=== PATIENT | male | born 1950 | race Caucasian/White ===

== ENCOUNTER 2019-01-12 18:26 | Observation (INO) ==
[2019-01-12] MEDS ORDERED: ONDANSETRON HCL/PF 2 MG/ML VIAL IV ONE (18:49)
[2019-01-12] MEDS ORDERED: MORPHINE SULFATE 2 MG/ML DISP.SYRIN IV ONE ×3 (18:50→22:30)
--- NOTE | 2019-01-12 18:51 | ERNOTE ---
<Anahi Ferrari - Last Filed: 01/12/19 22:12> Abdominal HPI - Narrative Date of Service: 01/12/19 - General Chief Complaint: Abdominal Pain Time Seen by Provider: 01/12/19 18:46 Source: patient Exam Limitations: no limitations - Immun/Allergies/Home Medications Immunizatons: IMMUNIZATION HX Immunizations Up to Date Yes Allergies/Adverse Reactions: Allergies fluticasone [From Flonase] Adverse Reaction (Mild, Verified 01/12/19 18:32) nose bleeds fexofenadine [From Milagros-D 12 Hour] Adverse Reaction (Unknown, Verified 01/12/19 18:32) not effective pseudoephedrine [From Milagros-D 12 Hour] Adverse Reaction (Unknown, Verified 01/12/19 18:32) not effective Home Medications: HOME MEDICATIONS aspirin 81 mg tablet,delayed release 81 mg PO DAILY 12/16/18 [Last Taken 01/10/19] atorvastatin 10 mg tablet 10 mg PO DAILY 12/16/18 [Last Taken 01/10/19] - Pain Score Pain Score #1 Pain Score: 7 Abdominal Pain Onset Location: epigastric Pain Radiation: other - diffuse abdomen - History of Present Illness Narrative: The patient is a 68 year old male who presents for abdominal pain which has been present for 1729. There are associated symptoms of chills, nausea and fatigue. The patient reports pain to epigastrium, 7/10. There are no alleviating factors. There are no aggravating factors. Previous treatments have included: none. The past medical history includes: anxiety, HLD and diverticulosis. The social history is positive for former smoker. The patient has had no ill contacts. Patient states he had colonoscopy this am and then upon arriving home was doing fine. Patient states around 1729 he began to develop severe abdominal pain, nausea and rigors. Review of Systems - Review of Systems Constitutional: Present: chills, fatigue EYE: Present: no symptoms reported ENT: Present: no symptoms reported. Absent: ear pain, nasal drainage, sore throat Respiratory: Present: no symptoms reported. Absent: shortness of breath, cough Cardiology: Present: no symptoms reported. Absent: chest pain Gastrointestinal/Abdominal: Present: nausea, abdominal pain. Absent: vomiting, diarrhea Genitourinary: Present: no symptoms reported. Absent: dysuria, decreased urinary output Musculoskeletal: Present: no symptoms reported. Absent: back pain Skin: Present: no symptoms reported. Absent: rash Neurological: Present: no symptoms reported All Other Systems: All systems neg except as marked Medical History (Updated 01/12/19 @ 07:43 by Janneth Blevins RN) Wears glasses Anxiety Onset Date: Unknown Diverticulosis Onset Date: 03/25/08 Hyperlipidemia Onset Date: Unknown Blood in stool Onset Date: 03/24/01 Deviated nasal septum Onset Date: Unknown Tinnitus Onset Date: 12/27/05 Surgical History: Surgical History (Updated 12/10/18 @ 16:38 by Trang Ayala RN) History of arthroscopic knee surgery Onset Date: ~1989 [facility]-right, meniscus repair History of colonoscopy Onset Date: 12/24/11 [place]-03/24/01-scattered sigmoid diverticulosis. 12/24/11-extensive diverticulosis sigmoid colon. History of inguinal hernia repair Onset Date: ~1997 [facility]-left History of nasal septoplasty Onset Date: ~1999 Dr. Balbir Holland teeth extracted Onset Date: ~2010 Family History: Family History (Updated 01/12/19 @ 07:42 by Janneth Blevins RN) Father , age 87-CHF Hypertension Cancer prostate ca-dx age78 Pacemaker Hyperlipemia CHF (congestive heart failure) Mother Hypertension Osteoarthritis CHF (congestive heart failure) Sister Cancer breast ca-dx age 55 Neuropathy due to chemo Sister Colon polyps Grandmother Cancer maternal-colon ca-dx age unknown Daughter Alive and well Social History: (Last Reviewed 01/12/19 @ 18:54 by HARLEY Cortez) Social History: Marital status: household members: spouse number of children: 2 current occupational status: retired Service: Yes branch: [employer] Tobacco: Smoking Status: Former smoker Alcohol: alcohol intake: current Alcohol type: beer alcohol intake frequency: a few times a week Substance Use: substance use type: does not use Dietary Habits: caffeine: Yes Personal Safety: victim of physical abuse: No victim of emotional abuse: No Physical Exam - Physical Exam General Appearance: Present: wd/wn, alert, moderate distress Head Exam: Present: active bleeding Eye Exam: Normal inspection: bilateral Ears, Nose, Throat: Present: normal ENT inspection, normal pharynx Neck: Present: normal inspection Respiratory: Present: no respiratory distress, normal breath sounds, no accessory muscle use, lungs clear Cardiovascular/Chest: Present: no murmur, tachycardia Gastrointestinal/Abdominal: Present: normal bowel sounds, nondistended, soft, no organomegaly, tenderness - epigastric-moderate, diffuse abdomen. Absent: guarding, mass Neurological Exam: Present: alert, oriented, normal mood/affect, no motor/sensory deficits Skin Exam: Present: warm/dry, pallor Progress - Date and Time Seen: Date and Time: 01/12/19 19:48 Discussed case with , concern for perforation due to free air on abd xray along with other clinical symptoms. states will present. Notified since she performed procedure, instructed to allow on-call to handle case. 01/12/19 20:13 in with patient to discuss plan of care. Due to post op care needs and staffing matrix patient to be transferred after discussion with nursing butcher supervisor and . Discussed case with , [facility], accepted for transfer. 01/12/19 20:30 Notified by [facility] that they will not be accepting this patient after Lacey DEMARCO was contacted by [facility] surgeon and instructed by Lacey that [facility] is able to take care of patient. Discussed with and will proceed with CT abd/pelvis due to other clinical findings of tachycardia, fever and abdominal pain since abd xray normal. 01/12/19 20:56 Discussed radiology interpretation with patient and family and will proceed with CT imaging for further evaluation. - Results and Orders Patient's Lab Results:: I have reviewed the patient's lab results. - Vital Signs Patient's Vital Signs:: I have reviewed the patient's vital signs. Vital Signs: Vital Signs 01/12/19 18:30 Temperature 37.6 C Pulse Rate 119 H Respiratory Rate 18 Blood Pressure 147/101 H O2 Sat by Pulse Oximetry 98 - X-Ray X-Ray #1 X-Ray: abdomen Interpretation: Reviewed by me X-ray Comments: Preliminary interpretation. Free air. Reviewed with . IMPRESSION: NO ACUTE ABDOMINAL PATHOLOGY IDENTIFIED. Electronically signed by Alton Montgomery M.D.. - Progress/Reassessment Chief Complaint: Abdominal Pain - Transfer of Care Physician Sign Out: Anahi Ferrari Receiving Physician: Ceasar Johnson Pending Results: CT/MRI results Expected Disposition: Admit Departure Clinical Impression: Perforation bowel - Departure Disposition: Still a patient Condition: Stable <Ceasar Johnson - Last Filed: 01/13/19 01:44> Abdominal HPI - Immun/Allergies/Home Medications Immunizatons: IMMUNIZATION HX Immunizations Up to Date Yes Medical History (Updated 01/12/19 @ 07:43 by Janneth Bleivns RN) Wears glasses Anxiety Onset Date: Unknown Diverticulosis Onset Date: 03/25/08 Hyperlipidemia Onset Date: Unknown Blood in stool Onset Date: 03/24/01 Deviated nasal septum Onset Date: Unknown Tinnitus Onset Date: 12/27/05 Surgical History: Surgical History (Updated 12/10/18 @ 16:38 by Trang Ayala RN) History of arthroscopic knee surgery Onset Date: ~1989 [facility]-right, meniscus repair History of colonoscopy Onset Date: 12/24/11 [place]-03/24/01-scattered sigmoid diverticulosis. 12/24/11-extensive diverticulosis sigmoid colon. History of inguinal hernia repair Onset Date: ~1997 [facility]-left History of nasal septoplasty Onset Date: ~1999 Dr. Balbir Holland teeth extracted Onset Date: ~2010 Family History: Family History (Updated 01/12/19 @ 07:42 by Janneth Blevins RN) Father , age 87-CHF Hypertension Cancer prostate ca-dx age78 Pacemaker Hyperlipemia CHF (congestive heart failure) Mother Hypertension Osteoarthritis CHF (congestive heart failure) Sister Cancer breast ca-dx age 55 Neuropathy due to chemo Sister Colon polyps Grandmother Cancer maternal-colon ca-dx age unknown Daughter Alive and well Social History: (Last Reviewed 01/12/19 @ 18:54 by HARLEY Cortez) Social History: Marital status: household members: spouse number of children: 2 current occupational status: retired Service: Yes branch: [employer] Tobacco: Smoking Status: Former smoker Alcohol: alcohol intake: current Alcohol type: beer alcohol intake frequency: a few times a week Substance Use: substance use type: does not use Dietary Habits: caffeine: Yes Personal Safety: victim of physical abuse: No victim of emotional abuse: No Progress - Vital Signs Vital Signs: Vital Signs 01/12/19 18:30 01/12/19 19:56 01/12/19 21:09 Temperature 37.6 C 38.6 C H Pulse Rate 119 H 121 H 113 H Respiratory Rate 18 16 16 Blood Pressure 147/101 H 136/78 126/76 O2 Sat by Pulse Oximetry 98 98 94 01/12/19 21:21 01/12/19 23:17 Temperature 38.4 C H 37.7 C Pulse Rate 113 H 117 H Respiratory Rate 16 16 Blood Pressure 129/78 98/62 O2 Sat by Pulse Oximetry 94 95 - CT/Ultrasound CT/Ultrasound Narrative: CT abdomen pelvis with oral and IV contrast. 1. Focal colonic wall thickening at the hepatic flexure with surrounding pericolonic inflammation reflective of a nonspecific colitis that may be infectious, inflammatory or traumatic in nature. No free air to suggest bowel perforation. Correlate with site of biopsy from status colonoscopy. 2. Bilateral dependent lower lobe airspace disease may represent atelectasis or pneumonia. 3. Diverticulosis without diverticulitis - Progress/Reassessment Progress Note-Subjective: 01/13/19 00:[address] Dodd about CT results he will come in and talk to the patient about admission. 01/13/19 01:42 Dr. Dodd did come in speak with the patient and completed H&P and admission orders.
[2019-01-12 19:04] LABS: Hemoglobin 14.8 gm/dL (13.5-18.0); Mean Cell Volume 89.1 fl (78-100); Mean Corpuscular Hgb Conc 33.6 g/dl (32-36); Mean Platelet Volume 9.3 fl (8-11.3); Neutrophil # 14.5 K/mm3 (1.3-6.0); Neutrophil % 87.9 % (42-75.0); Platelet Count 224 K/mm3 (150-450); Red Blood Count 4.94 M/mm3 (4.7-6.0); Red Cell Distribution Width 13.4 % (11.5-14.0); White Blood Count 16.5 K/mm3 (4.0-10.5)
[2019-01-12] MEDS: NORMAL SALINE 1,000 ML IV PRN ×2 (19:12→20:43)
[2019-01-12 19:17] LABS: Albumin * 3.7 gm/dl (3.4-5.0); Anion Gap 14.2 mmol/L (6.8-13.8); BUN/Creatinine Ratio 20.4 (9.0-21.6); Bilirubin, Total 0.8 mg/dL (0.0-1.1); Carbon Dioxide 24.6 mmol/L (24-32.6); Potassium 3.8 mmol/L (3.4-4.6); Total Protein 7.6 gm/dL (6.2-8.2)
[2019-01-12 19:22] LABS: Ca. Corrected For Albumin 8.3 mg/dL (8.4-10.2); Calcium * 8.4 mg/dL (7.9-10.9)
[2019-01-12 19:41] LABS: Urine Bilirubin Negative (NEGATIVE); Urine Blood Negative /ul (NEGATIVE); Urine Ketone Negative (NEGATIVE); Urine Nitrite Negative (NEGATIVE); Urine Protein Negative (NEGATIVE); Urine Specific Gravity >=1.030 SP.GR. (1.005-1.030); Urine Urobilinogen Normal (NORMAL); Urine pH 5.5 pH (5.0-7.0)
[2019-01-12 19:47] LABS: Urine Appearance Clear (CLEAR); Urine Bacteria None Seen; Urine Color Yellow; Urine RBC None Seen /hpf (0-5); Urine WBC None Seen /hpf (0-5)
[2019-01-12] MEDS ORDERED: PIPERACILLIN SODIUM/TAZOBACTAM 3.375 GM in DEXTROSE 5 % IN WATER 100 ML IV ONE ×2 (20:03)
[2019-01-12] MEDS ORDERED: NORMAL SALINE 1,000 ML IV ONE ×2 (20:03→22:40)
[2019-01-12] MEDS ORDERED: DIATRIZOATE MEGLUMINE, SODIUM 30 ML BTL PO ONE (20:50)
--- NOTE | 2019-01-13 01:12 | HP ---
Chief Complaint - Chief Complaint Date of Service: 01/13/19 Time of Service: 00:49 Chief Complaint: abdominal pain and chills after colonoscopy History of Present Illness: He had a colonoscopy AM of 01/12/19. He had a cautery snare polypectomy at the hepatic flexure. there was diverticulosis. He had no pain after the procedure, and ate some eggs. Then he developed right sided abdomnal pain and chills. He took a shower but the chills persisted. He tried some chicken soup and the pain got worse. He came to the ER and was found to have abdominal distention/tympany and marked tenderness. His WBC was elevated and he had an elevated temp. Initial impression of abdominal xrays suggested free air and I was asked to see the patient. Official reading was no free air. He was given IV zosyn and a CT scan obtained. There is colonic wall thickening in the hepatic flexure with adjacent pericolonic inflammation, but no free air. Lactic acid was 2.6 and 2.4 on repeat Medical History (Updated 01/12/19 @ 20:09 by HARLEY Cortez) Wears glasses Anxiety Onset Date: Unknown Diverticulosis Onset Date: 03/25/08 Hyperlipidemia Onset Date: Unknown Blood in stool Onset Date: 03/24/01 Deviated nasal septum Onset Date: Unknown Tinnitus Onset Date: 12/27/05 Surgical History: Surgical History (Updated 12/10/18 @ 16:38 by Trang Ayala RN) History of arthroscopic knee surgery Onset Date: ~1989 [facility]-right, meniscus repair History of colonoscopy Onset Date: 12/24/11 [place]-03/24/01-scattered sigmoid diverticulosis. 12/24/11-extensive diverticulosis sigmoid colon. History of inguinal hernia repair Onset Date: ~1997 [place]-left History of nasal septoplasty Onset Date: ~1999 Dr. Balbir Holland teeth extracted Onset Date: ~2010 Family History: Family History (Updated 01/12/19 @ 07:42 by Janneth Blevins RN) Father , age 87-CHF CHF (congestive heart failure) Hyperlipemia Pacemaker Cancer prostate ca-dx age78 Hypertension Mother CHF (congestive heart failure) Osteoarthritis Hypertension Sister Neuropathy due to chemo Cancer breast ca-dx age 55 Sister Colon polyps Grandmother Cancer maternal-colon ca-dx age unknown Daughter Alive and well Social History: (Last Reviewed 01/13/19 @ 00:55 by Yusuf Dodd MD) Social History: Marital status: household members: spouse number of children: 2 current occupational status: retired Service: Yes branch: [employer] Tobacco: Smoking Status: Former smoker Alcohol: alcohol intake: current Alcohol type: beer alcohol intake frequency: a few times a week Substance Use: substance use type: does not use Dietary Habits: caffeine: Yes Personal Safety: victim of physical abuse: No victim of emotional abuse: No Review Of Systems (GEN) - Review of Systems Generalized/Overall Review: Present: Chills, Fever EENTM: Present: No Symptoms Reported, Other - hearing aid Respiratory: Present: No Symptoms Reported, Other - used to snore until septoplasty, lesions on scalp and is going to see Dermatology next week Cardiac: Present: Palpitations - used to have, but w/u negative and not a problem now. Absent: Chest Pain Abdominal: Present: Abdominal Pain, Other - usually moves bowels 3 times a day, used to be more regular when he ate apples and oranges on breaks, has used some Metamucil. Absent: Nausea, Vomiting Genitourinary: Present: No Symptoms Reported, Nocturia - up once but not every night Musculoskeletal: Present: Joint Pain - sees achiropractor for neck and uses heat for achy joints, Neck Pain Neurological: Present: No Symptoms Reported Skin: Present: Other - scalp lesions and he cuts more Endocrine: Present: No Symptoms Reported Immunizations: IMMUNIZATION HX Immunizations Up to Date Yes Allergies/Adverse Reactions: Allergies Allergy/AdvReac Type Severity Reaction Status Date / Time fluticasone [From Flonase] AdvReac Mild nose bleeds Verified 01/12/19 18:32 fexofenadine AdvReac Unknown not Verified 01/12/19 18:32 [From Milagros-D 12 Hour] effective pseudoephedrine AdvReac Unknown not Verified 01/12/19 18:32 [From Milagros-D 12 Hour] effective Home Medications: HOME MEDICATIONS aspirin 81 mg tablet,delayed release 81 mg PO DAILY 12/16/18 [Last Taken 01/10/19] atorvastatin 10 mg tablet 10 mg PO DAILY 12/16/18 [Last Taken 01/10/19] Exam - Exam Vital Signs: Vital Signs - Last Taken Temp 37.7 C 01/12/19 23:17 Pulse 117 H 01/12/19 23:17 Resp 16 01/12/19 23:17 BP 98/62 01/12/19 23:17 Pulse Ox 95 01/12/19 23:17 Constitutional: Present: Alert, Oriented x3, Cooperative, Well nourished, Mild distress ENT Exam: Present: normal ENT inspection, hard of hearing - mild, other - fetor tracy Eye Exam: bilateral eye: normal inspection Neck: Present: full range of motion, supple, normal inspection Back Exam: Present: normal inspection Breasts: Present: Exam deferred Respiratory: Present: lungs clear, normal breath sounds, no respiratory distress Cardiovascular/Chest: Present: normal peripheral pulses, regular rate, rhythm, no JVD, no murmur Abdomen: Present: Normal bowel sounds, other - distended but soft. Very tympanitic but no harinder percussion tenderness. 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2 H (6.8-13.8) mmol/L Random Glucose 144 H (70-110) mg/dL Lactic Acid, Venous 2.6 H* (0.4-2.0) mmol/L Calcium Adj for Albumin 8.3 L (8.4-10.2) mg/dL Lipase 71 L (73-393) U/L 01/12/19 Range/Units 23:00 WBC (4.0-10.5) K/mm3 Immature Gran # (Auto) (0.000-0.0310) K/mm3 Neutrophils % (42-75.0) % Lymphocytes % (20-51) % Neutrophils # (1.3-6.0) K/mm3 Lymphocytes # (1.5-3.5) k/mm3 Anion Gap (6.8-13.8) mmol/L Random Glucose (70-110) mg/dL Lactic Acid, Venous 2.4 H* (0.4-2.0) mmol/L Calcium Adj for Albumin (8.4-10.2) mg/dL Lipase (73-393) U/L Laboratory Results WBC 16.5 K/mm3 (4.0-10.5) H 01/12/19 18:59 RBC 4.94 M/mm3 (4.7-6.0) 01/12/19 18:59 Hgb 14.8 gm/dL (13.5-18.0) 01/12/19 18:59 Hct 44.0 % (42.0-52.0) 01/12/19 18:59 MCV 89.1 fl (78-100) 01/12/19 18:59 MCH 30.0 pg (27-31) 01/12/19 18:59 MCHC 33.6 g/dl (32-36) 01/12/19 18:59 RDW 13.4 % (11.5-14.0) 01/12/19 18:59 Plt Count 224 K/mm3 (150-450) 01/12/19 18:59 MPV 9.3 fl (8-11.3) 01/12/19 18:59 Immature Gran % (Auto) 0.40 % (0.001-0.429) 01/12/19 18:59 Immature Gran # (Auto) 0.07 K/mm3 (0.000-0.0310) H 01/12/19 18:59 87.9 % (42-75.0) H 01/12/19 18:59 7.3 % (20-51) L 01/12/19 18:59 4.0 % (0.0-9) 01/12/19 18:59 0.2 % (0.0-3.0) 01/12/19 18:59 0.2 % (0.0-1.0) 01/12/19 18:59 Nucleated RBC % 0.0 k/mm3 (0-1) 01/12/19 18:59 14.5 K/mm3 (1.3-6.0) H 01/12/19 18:59 1.20 k/mm3 (1.5-3.5) L 01/12/19 18:59 0.7 k/mm3 (0.0-1.0) 01/12/19 18:59 0.0 k/mm3 (0.0-0.7) 01/12/19 18:59 Absolute Basophils 0.0 k/mm3 (0.0-0.1) 01/12/19 18:59 Sodium 137 mmol/L (132-142) 01/12/19 18:59 138 mmol/L (130-142) 01/12/19 18:59 Potassium 3.8 mmol/L (3.4-4.6) 01/12/19 18:59 Chloride 102 mmol/L (97-106) 01/12/19 18:59 Carbon Dioxide 24.6 mmol/L (24-32.6) 01/12/19 18:59 14.2 mmol/L (6.8-13.8) H 01/12/19 18:59 BUN 20 mg/dL (6-23) 01/12/19 18:59 0.98 mg/dL (0.4-1.4) 01/12/19 18:59 Est GFR (Non-Af Amer) 80 mL/min (60-130) 01/12/19 18:59 20.4 (9.0-21.6) 01/12/19 18:59 144 mg/dL (70-110) H 01/12/19 18:59 2.4 mmol/L (0.4-2.0) H* 01/12/19 23:00 Calcium 8.4 mg/dL (7.9-10.9) 01/12/19 18:59 Calcium Adj for Albumin 8.3 mg/dL (8.4-10.2) L 01/12/19 18:59 0.8 mg/dL (0.0-1.1) 01/12/19 18:59 AST 20 U/L (0-48) 01/12/19 18:59 ALT 21 U/L (19-67) 01/12/19 18:59 85 U/L (50-170) 01/12/19 18:59 7.6 gm/dL (6.2-8.2) 01/12/19 18:59 3.7 gm/dl (3.4-5.0) 01/12/19 18:59 Amylase 46 U/L (25-115) 01/12/19 18:59 71 U/L (73-393) L 01/12/19 18:59 Yellow 01/12/19 19:34 Clear (CLEAR) 01/12/19 19:34 5.5 pH (5.0-7.0) 01/12/19 19:34 Ur Specific [place] >=1.030 SP.GR. (1.005-1.030) 01/12/19 19:34 Negative mg/dL (NEGATIVE) 01/12/19 19:34 Negative mg/dL (NEGATIVE) 01/12/19 19:34 Negative mg/dL (NEGATIVE) 01/12/19 19:34 Negative /ul (NEGATIVE) 01/12/19 19:34 Negative (NEGATIVE) 01/12/19 19:34 Negative mg/dl (NEGATIVE) 01/12/19 19:34 Normal EU/dl (NORMAL) 01/12/19 19:34 Ur Leukocyte Esterase Negative /ul (NEGATIVE) 01/12/19 19:34 None seen /hpf (0-5) 01/12/19 19:34 None seen /hpf (0-5) 01/12/19 19:34 Ur Epithelial Cells None seen /hpf (0-5) 01/12/19 19:34 None seen (NONE) 01/12/19 19:34 No culture indicated 01/12/19 19:34 CT report reviewed Assessment/Plan - Assessment/Plan (1) Perforation bowel Assessment: He does not have free air but does have findings adjacent to the polypectomy site. Will keep NPO with IV hydration and IV antibiotics. SCD's for VTE prophylaxis--no Lovenox, takes ASA. Continue home cholesterol meds. Will re- examine serially and recheck WBC in AM. Problem: Suspected
[2019-01-13] MEDS ORDERED: MORPHINE SULFATE 4 MG/ML SYRG IV PRN (01:19)
[2019-01-13] MEDS ORDERED: ACETAMINOPHEN 1,000 MG/100 ML BTL IV ONE (01:41)
[2019-01-13] MEDS: NORMAL SALINE 1,000 ML IV PRN ×4 (02:54→20:34)
[2019-01-13] MEDS: PIPERACILLIN SODIUM/TAZOBACTAM 3.375 GM in DEXTROSE 5 % IN WATER 100 ML IV SCH ×6 (03:18→18:42)
[2019-01-13] MEDS ORDERED: MORPHINE SULFATE 2 MG/ML DISP.SYRIN IV PRN (06:35)
[2019-01-13 07:03] LABS: Hematocrit 34.9 % (42.0-52.0); Hemoglobin 11.9 gm/dL (13.5-18.0); Mean Cell Volume 88.8 fl (78-100); Mean Corpuscular Hemoglobin 30.3 pg (27-31); Mean Corpuscular Hgb Conc 34.1 g/dl (32-36); Mean Platelet Volume 8.8 fl (8-11.3); Platelet Count 175 K/mm3 (150-450); Red Blood Count 3.93 M/mm3 (4.7-6.0); Red Cell Distribution Width 13.6 % (11.5-14.0); White Blood Count 23.5 K/mm3 (4.0-10.5)
[2019-01-13 07:08] LABS: Total Cells Counted 100
[2019-01-13 07:16] LABS: Band 1 % (0-2.0); Basophil 1 % (0-1); Lymphocyte 10 % (20-51); Monocyte 4 % (0-9); Neutrophil 84 % (42-75); Neutrophil # 19.7 K/mm3 (1.3-6.0); Platelet Estimate Normal (NORMAL); RBC Morphology Normal (NORMAL)
--- NOTE | 2019-01-13 09:24 | PN ---
Subjective - Date and Time Seen Date: 01/13/19 Time: 09:20 Subjective Narrative: He is feeling much better today. He is much more comfortable and has less pain. Objective - Review of Systems Generalized/Overall Review: Reports: No Symptoms Reported EENTM: Reports: No Symptoms Reported Respiratory: Reports: No Symptoms Reported Cardiac: Reports: No Symptoms Reported Abdominal: Reports: Abdominal Pain Genitourinary Symptoms: Reports: No Symptoms Reported Musculoskeletal Complaints: Reports: No Symptoms Reported Neurological: Reports: No Symptoms Reported Skin: Reports: No Symptoms Reported Endocrine: Reports: No Symptoms Reported - Vitals Vitals: Last Vital Signs Temp 37.0 C 01/13/19 06:50 Pulse 74 01/13/19 06:50 Resp 16 01/13/19 06:50 BP 90/58 01/13/19 06:50 Pulse Ox 95 01/13/19 06:50 - Abnormal Lab Findings Abnormal Lab Findings: Abnormal Lab Results 01/12/19 01/12/19 01/12/19 Range/Units 18:59 18:59 18:59 WBC 16.5 H (4.0-10.5) K/mm3 RBC (4.7-6.0) M/mm3 Hgb (13.5-18.0) gm/dL Hct (42.0-52.0) % Immature Gran # (Auto) 0.07 H (0.000-0.0310) K/mm3 Neutrophils % 87.9 H (42-75.0) % Neutrophils % (Manual) (42-75) % Lymphocytes % 7.3 L (20-51) % Lymphocytes % (Manual) (20-51) % Neutrophils # 14.5 H (1.3-6.0) K/mm3 Neutrophils # (Manual) (1.3-6.0) K/mm3 Lymphocytes # 1.20 L (1.5-3.5) k/mm3 Basophils # (Manual) (0.0-0.1) k/mm3 Anion Gap 14.2 H (6.8-13.8) mmol/L Random Glucose 144 H (70-110) mg/dL Lactic Acid, Venous 2.6 H* (0.4-2.0) mmol/L Calcium Adj for Albumin 8.3 L (8.4-10.2) mg/dL C-Reactive Prot, Quant (0.0-0.9) mg/dL Lipase 71 L (73-393) U/L 01/12/19 01/13/19 01/13/19 Range/Units 23:00 07:01 07:01 WBC 23.5 H D (4.0-10.5) K/mm3 RBC 3.93 L (4.7-6.0) M/mm3 Hgb 11.9 L (13.5-18.0) gm/dL Hct 34.9 L (42.0-52.0) % Immature Gran # (Auto) (0.000-0.0310) K/mm3 Neutrophils % (42-75.0) % Neutrophils % (Manual) 84 H (42-75) % Lymphocytes % (20-51) % Lymphocytes % (Manual) 10 L (20-51) % Neutrophils # (1.3-6.0) K/mm3 Neutrophils # (Manual) 19.7 H (1.3-6.0) K/mm3 Lymphocytes # (1.5-3.5) k/mm3 Basophils # (Manual) 0.2 H (0.0-0.1) k/mm3 Anion Gap (6.8-13.8) mmol/L Random Glucose (70-110) mg/dL Lactic Acid, Venous 2.4 H* (0.4-2.0) mmol/L Calcium Adj for Albumin (8.4-10.2) mg/dL C-Reactive Prot, Quant 7.9 H (0.0-0.9) mg/dL Lipase (73-393) U/L - Exam Constitutional: Present: Alert, Oriented x3, Cooperative ENT Exam: Present: hearing grossly normal Neck: Present: supple Respiratory: Present: lungs clear, no respiratory distress Cardiovascular/Chest: Present: regular rate, rhythm Abdomen: Present: Normal bowel sounds, soft, nontender, nondistended, no rebound tenderness /Rectal: Present: Exam deferred Extremity: Present: normal range of motion Skin Exam: Present: normal color Lymphatic: Present: no adenopathy 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
[2019-01-13] MEDS: ACETAMINOPHEN 500 MG TABLET PO PRN ×2 (10:38→18:40)
[2019-01-13] MEDS ORDERED: NORMAL SALINE 1,000 ML IV ONE (10:55)
[2019-01-13] MEDS ORDERED: SIMVASTATIN 20 MG TABLET PO SCH (21:00)
[2019-01-14] MEDS: NORMAL SALINE 1,000 ML IV PRN (03:17)
[2019-01-14] MEDS: PIPERACILLIN SODIUM/TAZOBACTAM 3.375 GM in DEXTROSE 5 % IN WATER 100 ML IV SCH ×4 (03:17→10:49)
[2019-01-14] MEDS: ACETAMINOPHEN 500 MG TABLET PO PRN (03:24)
[2019-01-14 05:45] LABS: Hematocrit 35.4 % (42.0-52.0); Hemoglobin 11.9 gm/dL (13.5-18.0); Mean Cell Volume 90.3 fl (78-100); Mean Corpuscular Hemoglobin 30.4 pg (27-31); Mean Corpuscular Hgb Conc 33.6 g/dl (32-36); Mean Platelet Volume 9.2 fl (8-11.3); Neutrophil # 13.1 K/mm3 (1.3-6.0); Neutrophil % 80.9 % (42-75.0); Platelet Count 180 K/mm3 (150-450); Red Blood Count 3.92 M/mm3 (4.7-6.0); Red Cell Distribution Width 14.1 % (11.5-14.0); White Blood Count 16.2 K/mm3 (4.0-10.5)
--- NOTE | 2019-01-14 08:28 | PN ---
Subjective - Date and Time Seen Date: 01/14/19 Time: 08:28 Subjective Narrative: He is doing well. His pain is decreased. He is having frequent diarrhea. He denies blood. Denies N/V. Feels hungry Objective - Review of Systems Generalized/Overall Review: Reports: No Symptoms Reported EENTM: Reports: No Symptoms Reported Respiratory: Reports: No Symptoms Reported Cardiac: Reports: No Symptoms Reported Abdominal: Reports: Abdominal Pain - mild, Diarrhea Genitourinary Symptoms: Reports: No Symptoms Reported Musculoskeletal Complaints: Reports: No Symptoms Reported Neurological: Reports: No Symptoms Reported Skin: Reports: No Symptoms Reported Endocrine: Reports: No Symptoms Reported - Vitals Vitals: Last Vital Signs Temp 36.9 C 01/14/19 06:21 Pulse 68 01/14/19 06:21 Resp 16 01/14/19 06:21 BP 133/77 01/14/19 06:21 Pulse Ox 95 01/14/19 06:21 - Abnormal Lab Findings Abnormal Lab Findings: Abnormal Lab Results 01/14/19 Range/Units 05:30 WBC 16.2 H D (4.0-10.5) K/mm3 RBC 3.92 L (4.7-6.0) M/mm3 Hgb 11.9 L (13.5-18.0) gm/dL Hct 35.4 L (42.0-52.0) % RDW 14.1 H (11.5-14.0) % Immature Gran % (Auto) 0.70 H (0.001-0.429) % Immature Gran # (Auto) 0.12 H (0.000-0.0310) K/mm3 Neutrophils % 80.9 H (42-75.0) % Lymphocytes % 10.8 L (20-51) % Neutrophils # 13.1 H (1.3-6.0) K/mm3 - Exam Constitutional: Present: Alert, Oriented x3 ENT Exam: Present: hearing grossly normal Neck: Present: supple Breasts: Present: Exam deferred Respiratory: Present: lungs clear, normal breath sounds Cardiovascular/Chest: Present: regular rate, rhythm Abdomen: Present: Normal bowel sounds, soft, nontender, no rebound tenderness /Rectal: Present: Exam deferred Extremity: Present: normal range of motion Skin Exam: Present: normal color Neurologic: Present: paper inserter II-XII nml as tested Appearance: Present: appropriate appearance Eye contact: Present: cooperative Thoughts: Present: normal thought pattern Assessment/Plan - Problems/Diagnosis (1) Abdominal pain Problem: Acute (2) History of colonoscopy with polypectomy Problem: Acute Plan - Plan Plan: clears this am fulls at lunch WBC improved bp improved dc later today if continues to do well
--- NOTE | 2019-01-14 09:13 | DS ---
Date of Discharge:: 01/14/19 Description of Stay: Cliff is a very pleasant 68 year old male who underwent colonoscopy with polypectomy. He then went to the ER with pain. 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 He was started on bowel rest and conservative treatment and has improved well. He is going to start a diet today and will likely dc this afternoon. Procedures Performed: see notes below List Procedures: colonoscopy with polypectomy Results and Findings: Pending Mircobiology Results 01/12/19 20:25 Blood Blood Culture - Preliminary NO GROWTH 24 HOURS 01/12/19 18:17 Blood Blood Culture - Preliminary NO GROWTH 24 HOURS Lab Pending Results 01/12/19 18:59: WBC 16.5 H, RBC 4.94, Hgb 14.8, Hct 44.0, MCV 89.1, MCH 30.0, MCHC 33.6, RDW 13.4, Plt Count 224, MPV 9.3, Immature Gran % (Auto) 0.40, Immature Gran # (Auto) 0.07 H, Neutrophils % 87.9 H, Lymphocytes % 7.3 L, Monocytes % 4.0, Eosinophils % 0.2, Basophils % 0.2, Nucleated RBC % 0.0, Neutrophils # 14.5 H, Lymphocytes # 1.20 L, Monocytes # 0.7, Eosinophils # 0.0, Absolute Basophils 0.0 01/12/19 18:59: Sodium 137, Plasma Sodium 138, Potassium 3.8, Chloride 102, Carbon Dioxide 24.6, Anion Gap 14.2 H, BUN 20, Creatinine 0.98, Est GFR (Non-Af Amer) 80, BUN/Creatinine Ratio 20.4, Random Glucose 144 H, Calcium 8.4, Calcium Adj for Albumin 8.3 L, Total Bilirubin 0.8, AST 20, ALT 21, Alkaline Phosphatase 85, Total Protein 7.6, Albumin 3.7, Amylase 46, Lipase 71 L 01/12/19 18:59: Lactic Acid, Venous 2.6 H* 01/12/19 19:34: Urine Color Yellow, Urine Appearance Clear, Urine pH 5.5, Ur Specific [place] >=1.030, Urine Protein Negative, Urine Glucose (UA) Negative, Urine Ketones Negative, Urine Blood Negative, Urine Nitrate Negative, Urine Bilirubin Negative, Urine Urobilinogen Normal, Ur Leukocyte Esterase Negative, Urine RBC None seen, Urine WBC None seen, Ur Epithelial Cells None seen, Urine Bacteria None seen, Urine Culture Comments No culture indicated 01/12/19 23:00: Lactic Acid, Venous 2.4 H* 01/13/19 04:25: Lactic Acid, Venous 2.0 01/13/19 07:01: WBC 23.5 H D, RBC 3.93 L, Hgb 11.9 L, Hct 34.9 L, MCV 88.8, MCH 30.3, MCHC 34.1, RDW 13.6, Plt Count 175, MPV 8.8, Neutrophils % (Manual) 84 H, Band Neuts % (Manual) 1, Lymphocytes % (Manual) 10 L, Monocytes % (Manual) 4, Basophils % (Manual) 1, Neutrophils # (Manual) 19.7 H, Lymphocytes # (Manual) 2.4, Monocytes # (Manual) 0.9, Basophils # (Manual) 0.2 H, Platelet Estimate Normal, RBC Morphology Normal 01/13/19 07:01: C-Reactive Prot, Quant 7.9 H 01/13/19 07:01: Lactic Acid, Venous 1.6 01/14/19 05:30: WBC 16.2 H D, RBC 3.92 L, Hgb 11.9 L, Hct 35.4 L, MCV 90.3, MCH 30.4, MCHC 33.6, RDW 14.1 H, Plt Count 180, MPV 9.2, Immature Gran % (Auto) 0.70 H, Immature Gran # (Auto) 0.12 H, Neutrophils % 80.9 H, Lymphocytes % 10.8 L, Monocytes % 5.7, Eosinophils % 1.7, Basophils % 0.2, Nucleated RBC % 0.0, Neutrophils # 13.1 H, Lymphocytes # 1.75, Monocytes # 0.9, Eosinophils # 0.3, Absolute Basophils 0.0 Discharge Location: Home Disposition: Home self-care Condition: Stable Discharge Activity: Activity as tolerated Discharge Diet: [facility] soft Referrals: Johnson Rooney MD [Primary Care Provider] - Complete Home Medications List: Complete Home Medication List: aspirin 81 mg tablet,delayed release 81 mg PO DAILY 12/16/18 atorvastatin 10 mg tablet 10 mg PO DAILY 12/16/18 Simvastatin [Zocor] 20 mg PO HS tab 01/14/19
[2019-01-14 15:17] VITALS: BP 135/83
== END 2019-01-14 16:42 | disposition home or self-care (01) ==
LOC: MS 18:26 → ER 18:26 → MS 01-13 02:13
PROVIDERS: ADMIT Surgery; ATTEND Surgery
DX: K63.1 Perforation of intestine (nontraumatic); R10.821 Right upper quadrant rebound abdominal tenderness; E78.5 Hyperlipidemia, unspecified; Z98.890 Other specified postprocedural states; K57.90 Diverticulosis of intestine, part unspecified, without perforation or abscess without bleeding
CPT/HCPCS: 36415; 74019; 74020; 74177; 80053; 81001; 82150; 83605; 83690; 85025; 86140; 87040; 96365; 96366; 96367; 99285; G0378; J0131; J2405; Q9963; Q9967